=== PATIENT | female | born 1995 | race Caucasian/White ===

== ENCOUNTER 2021-06-01 08:55 | Emergency (ER) | payer OTHER, MEDICAID ==
[~2021-06-01] VITALS: Ht 165.1 cm; Wt 89.4 kg
[2021-06-01 09:37] LABS: ABSOLUTE BASOPHILS 0.1 thou/uL (0.0-0.2); ABSOLUTE EOSINOPHILS 0.1 thou/uL (0.0-0.7); ABSOLUTE MONOCYTES 0.3 thou/uL (0.0-1.2); ABSOLUTE NEUTROPHILS 2.2 thou/uL (1.6-8.1); BASOPHILS 1.1 %; EOSINOPHILS 1.5 %; HEMATOCRIT 41.5 % (37.0-47.0); HEMOGLOBIN 14.3 gm/dL (12.0-15.0); LYMPHOCYTES 44.1 %; MCH 31.8 pg (26.0-34.0); MCHC 34.5 g/dL (28.0-37.0); MCV 92.1 fL (80.0-100.0); MPV 7.2 fl. (7.2-11.1); NUCLEATED RBCS 0 /100WBC; PLATELET COUNT* 251 thou/uL (150-400); POLYS 47.3 %; RBC 4.51 mil/uL (4.20-5.00); RDW-CV 13.5 % (10.5-14.5); WBC 4.6 thou/uL (4.0-11.0)
[2021-06-01 10:06] LABS: CALCIUM 8.4 mg/dL (8.5-10.1); CREATININE 0.8 mg/dL (0.6-1.3)
[2021-06-01 10:11] LABS: ALBUMIN 3.9 g/dL (3.4-5.0); TOTAL BILIRUBIN 0.2 mg/dL (<0.1-1.0)
[2021-06-01 10:39] LABS: URINE BILIRUBIN NEGATIVE (Negative); URINE BLOOD NEGATIVE (Negative); URINE CLARITY CLEAR; URINE COLOR YELLOW; URINE GLUCOSE-RANDOM NEGATIVE (Negative); URINE KETONES NEGATIVE (Negative); URINE LEUKOCYTES-REFLEX NEGATIVE (Negative); URINE NITRITE-REFLEX NEGATIVE (Negative); URINE PROTEIN NEGATIVE (Negative); URINE SPECIFIC GRAVITY 1.025 (1.005-1.030); URINE UROBILINOGEN 0.2 E.U./dl (0.2-1.0)
[2021-06-01 11:02] VITALS: BP 131/88
--- NOTE | 2021-06-01 17:48 | EKG ---
[place] [address] ELECTROCARDIOGRAM REPORT Name: JUNIORJaceMINDA C Room: [facility]#: [id number] Admission: 06/01/21 Attend Phys: Discharge: 06/01/21 Date of : 89 Date of Service: 06/01/21917 Report #: [id number] THIS REPORT FOR: //name// [facility] ED Test Date: 2021-06-01 Test Time: 09:18:21 Pat Name: MINDA SILVESTRE Department: Room: Gender: F [employer] Operator: RODNEY : 1995 Requested By: Aldair Luciano Order Number: [id number] MD: Jt Connelly Measurements Intervals [place] Rate: 93 P: 40 MT: 141 QRS: 66 QRSD: 89 T: 16 QT: 365 QTc: 454 Interpretive Statements Sinus rhythm No previous ECG available for comparison Electronically Signed On 06-01-2021 17:48:29 CDT by Jt Connelly [email or web address] <ELECTRONICALLY SIGNED> By: Jt Connelly MD, [facility] 06/01/21 1748 7 7 Jt Connelly MD, FAC /EPI
== END 2021-06-01 11:04 | disposition home or self-care (01) ==
LOC: M.ERS 08:55
PROVIDERS: Family Medicine
DX: R10.10 Upper abdominal pain, unspecified (principal); R11.2 Nausea with vomiting, unspecified; F17.210 Nicotine dependence, cigarettes, uncomplicated; Z98.890 Other specified postprocedural states; Z90.49 Acquired absence of other specified parts of digestive tract; Z98.51 Tubal ligation status; Z91.048 Other nonmedicinal substance allergy status; Z88.8 Allergy status to other drugs, medicaments and biological substances